=== PATIENT | male | born 1955 | race Caucasian/White ===

== ENCOUNTER 2017-10-19 21:49 | Inpatient (IN) | payer OTHER ==
[~2017-10-19] VITALS: Ht 188 cm; Wt 110.5 kg
[2017-10-19 21:58] LABS: BASOPHIL (%) 0.6 % (0-1); BASOPHIL COUNT 0.1 K/uL (0-0.1); EOSINOPHIL (%) 3.1 % (0-5); EOSINOPHIL COUNT 0.3 K/uL (0-0.3); HEMATOCRIT 37.2 % (38.0-50.0); HEMOGLOBIN 12.7 G/DL (12.5-16.6); IMMATURE GRANULOCYTE (%) 0.5 % (0.0-0.7); LYMPHOCYTE (%) 10.1 % (15-42); MCH 29.3 PG (29.0-34.0); MCHC 34.1 G/DL (30.0-36.0); MCV 85.9 FL (86-99); MONOCYTE (%) 4.8 % (3-12); MONOCYTE COUNT 0.5 K/uL (0-0.8); NEUTROPHIL (%) 80.9 % (45-76); NEUTROPHIL COUNT 7.9 K/uL (1.8-6.4); PLATELET COUNT 239 K/uL (156-360); RBC DIS.WIDTH-CV 13.6 % (11.8-14.6); RBC DIS.WIDTH-SD 42.3 % (39-53); RED BLOOD COUNT 4.33 M/uL (4.00-5.50); WHITE BLOOD COUNT 9.7 K/uL (4.1-10.2)
[2017-10-19 22:31] LABS: AMYLASE 24 IU/L (1-118); CHLORIDE 107 MEQ/L (99-109); CREATININE 1.3 MG/DL (0.6-1.3); GFR ESTIMATE (CALCULATED) > 59 mL/min/ (58.99-99999); GLUCOSE 202 mg/dL (70-99); LIPASE 15 U/L (1.0-51.0); POTASSIUM 4.4 MEQ/L (3.7-5.4); SERUM ETHYL ALCOHOL < 10 mg/dL; SODIUM 138 MEQ/L (136-147); UREA NITROGEN (BUN) 23 mg/dL (9-23)
[2017-10-20] VITALS (7 sets, daily range): BP systolic 143–182; BP diastolic 69–88
[2017-10-20] MEDS ORDERED: GLUCOPHAGE1000 MG PO (00:01)
[2017-10-20] MEDS ORDERED: ALLOPURINOL300 MG PO (00:01)
[2017-10-20] MEDS ORDERED: ACCUPRIL40 MG PO (00:01)
[2017-10-20] MEDS ORDERED: BASAGLAR K100 UNIT/1 SC (00:01)
[2017-10-20] MEDS ORDERED: BLOOD PRESSURE PO (00:01)
[2017-10-20 00:36] LABS: APPEARANCE CLEAR ((CLEAR)); BILIRUBIN NEGATIVE; BLOOD LARGE; COLOR YELLOW ((YELLOW)); GLUCOSE (STRIP) 150; KETONES NEGATIVE; LEUKOCYTES NEGATIVE; NITRITE NEGATIVE; PROTEIN (STRIP) >=500; SPECIFIC GRAVITY 1.032 (1.000-1.030); UROBILINOGEN 0.2 MG/DL (0.2-1.0)
[2017-10-20 00:40] LABS: BACTERIA NONE SEEN /HPF; EPITHELIAL CELLS NONE SEEN /HPF; MUCUS TRACE /LPF; UCUL ADDED? NO; WHITE BLOOD CELLS 0-5 /HPF (0-5)
[2017-10-20 00:44] LABS: AMPHETAMINE NEGATIVE (500 ng/mL); BARBITURATES NEGATIVE (200 ng/mL); BENZODIAZEPINES NEGATIVE (150 ng/mL); BUPRENORPHINE NEGATIVE (10 ng/mL); COCAINE NEGATIVE (150 ng/mL); METHADONE NEGATIVE (200 ng/mL); METHAMPHETAMINE NEGATIVE (500 ng/mL); OPIATES (MORPHINE) NEGATIVE (100 ng/mL); OXYCODONE NEGATIVE (100 ng/mL); PHENCYCLIDINE NEGATIVE (25 ng/mL); PROPOXYPHENE NEGATIVE (300 ng/mL); THC CANNABINOIDS NEGATIVE (50 ng/mL); TRICYCLIC ANTIDEPRESSANTS NEGATIVE (300 ng/mL)
[2017-10-20 05:27] LABS: BASOPHIL (%) 0.2 % (0-1); EOSINOPHIL (%) 0.2 % (0-5); HEMATOCRIT 33.3 % (38.0-50.0); HEMOGLOBIN 10.9 G/DL (12.5-16.6); IMMATURE GRANULOCYTE (%) 0.3 % (0.0-0.7); LYMPHOCYTE (%) 7.5 % (15-42); LYMPHOCYTE COUNT 0.7 K/uL (1.0-2.8); MCH 28.6 PG (29.0-34.0); MCHC 32.7 G/DL (30.0-36.0); MCV 87.4 FL (86-99); MONOCYTE (%) 5.5 % (3-12); MONOCYTE COUNT 0.5 K/uL (0-0.8); NEUTROPHIL (%) 86.3 % (45-76); PLATELET COUNT 212 K/uL (156-360); RBC DIS.WIDTH-CV 13.6 % (11.8-14.6); RBC DIS.WIDTH-SD 43.7 % (39-53); RED BLOOD COUNT 3.81 M/uL (4.00-5.50); WHITE BLOOD COUNT 9.3 K/uL (4.1-10.2)
[2017-10-20 05:58] LABS: ALBUMIN 3.7 G/DL (3.2-4.8); ALKALINE PHOSPHATASE 65 IU/L (3-129); ALT (GPT) 16 IU/L (3-49); AST (GOT) 24 IU/L (2-34); CHLORIDE 109 MEQ/L (99-109); CREATININE 1.1 MG/DL (0.6-1.3); GFR ESTIMATE (CALCULATED) > 59 mL/min/ (58.99-99999); GLUCOSE 184 mg/dL (70-99); POTASSIUM 4.6 MEQ/L (3.7-5.4); SODIUM 139 MEQ/L (136-147); TOTAL BILIRUBIN 0.4 MG/DL (0.0-1.0); TOTAL PROTEIN 5.6 G/DL (6.4-8.3); UREA NITROGEN (BUN) 20 mg/dL (9-23)
[2017-10-20] MEDS ORDERED: NORVASC5 MG PO (13:39)
[2017-10-20] MEDS ORDERED: GLUCOTROL5 MG PO (13:39)
[2017-10-21 05:19] LABS: HEMATOCRIT 33.7 % (38.0-50.0); HEMOGLOBIN 11.3 G/DL (12.5-16.6); MCH 29.6 PG (29.0-34.0); MCHC 33.5 G/DL (30.0-36.0); MCV 88.2 FL (86-99); PLATELET COUNT 199 K/uL (156-360); RBC DIS.WIDTH-CV 13.7 % (11.8-14.6); RBC DIS.WIDTH-SD 44.3 % (39-53); RED BLOOD COUNT 3.82 M/uL (4.00-5.50); WHITE BLOOD COUNT 8.3 K/uL (4.1-10.2)
[2017-10-21 06:05] LABS: CHLORIDE 104 MEQ/L (99-109); CREATININE 1.2 MG/DL (0.6-1.3); GFR ESTIMATE (CALCULATED) > 59 mL/min/ (58.99-99999); GLUCOSE 181 mg/dL (70-99); POTASSIUM 4.8 MEQ/L (3.7-5.4); SODIUM 136 MEQ/L (136-147); UREA NITROGEN (BUN) 19 mg/dL (9-23)
[2017-10-21 07:08] VITALS: BP 168/78
[2017-10-21 11:11] VITALS: BP 158/76
[2017-10-21 12:52] VITALS: BP 172/82
[2017-10-21 15:44] VITALS: BP 160/85
[2017-10-21 19:30] VITALS: BP 160/78
[2017-10-21 23:17] VITALS: BP 158/82
[2017-10-22 03:39] VITALS: BP 142/84
[2017-10-22 06:56] LABS: HEMATOCRIT 33.6 % (38.0-50.0); HEMOGLOBIN 10.8 G/DL (12.5-16.6); MCV 88.4 FL (86-99)
[2017-10-22 07:58] VITALS: BP 160/74
[2017-10-22 12:00] VITALS: BP 150/78
[2017-10-22 15:50] VITALS: BP 151/89
[2017-10-22 19:29] VITALS: BP 164/64
[2017-10-22 23:32] VITALS: BP 166/60
[2017-10-23 06:56] LABS: CHLORIDE 99 MEQ/L (99-109); CREATININE 1.2 MG/DL (0.6-1.3); GFR ESTIMATE (CALCULATED) > 59 mL/min/ (58.99-99999); GLUCOSE 188 mg/dL (70-99); POTASSIUM 4.5 MEQ/L (3.7-5.4); SODIUM 136 MEQ/L (136-147); UREA NITROGEN (BUN) 23 mg/dL (9-23)
[2017-10-23] MEDS ORDERED: COLACE100 MG PO (10:38)
[2017-10-23] MEDS ORDERED: DILAUDID4 MG PO (10:38)
[2017-10-23] MEDS ORDERED: ULTRAM50 MG PO (10:38)
[2017-10-23] MEDS ORDERED: ZOFRAN ODT4 MG PO (10:38)
[2017-10-23] MEDS ORDERED: LIDODERM 5% P1 PATCH TD (10:38)
[2017-10-23 12:02] VITALS: BP 119/60
== END 2017-10-23 13:50 | disposition home or self-care (01) | DRG 982 ==
LOC: TRA 21:49 → 3EAST 23:45 → EDOF 23:45 → ENRESERV 23:49 → 4EAST 10-20 01:51 → ENRESERV 10-21 09:56 → CANRESERV 10-21 09:56 → ENRESERV 10-21 09:58 → 3EAST 10-21 12:38
PROVIDERS: Emergency Medicine; Hospitalist; Physician Assistant; Surgery
PROC: 2W3FX1Z Immobilization of Left Hand using Splint (ICD-10-PCS; principal; 2017-10-19)
PROC: 0YQ9XZZ Repair Right Lower Extremity, External Approach (ICD-10-PCS; principal; 2017-10-19)
DX: S22.49XA Multiple fractures of ribs, unspecified side, initial encounter for closed fracture (principal); S12.600A Unspecified displaced fracture of seventh cervical vertebra, initial encounter for closed fracture; S32.029A Unspecified fracture of second lumbar vertebra, initial encounter for closed fracture; S22.41XA Multiple fractures of ribs, right side, initial encounter for closed fracture; S22.019A Unspecified fracture of first thoracic vertebra, initial encounter for closed fracture; S32.019A Unspecified fracture of first lumbar vertebra, initial encounter for closed fracture; E11.65 Type 2 diabetes mellitus with hyperglycemia; Z96.651 Presence of right artificial knee joint; S81.011A Laceration without foreign body, right knee, initial encounter; S61.412A Laceration without foreign body of left hand, initial encounter; S62.307A Unspecified fracture of fifth metacarpal bone, left hand, initial encounter for closed fracture; I49.3 Ventricular premature depolarization; E66.9 Obesity, unspecified; I10 Essential (primary) hypertension; K63.89 Other specified diseases of intestine; S81.811A Laceration without foreign body, right lower leg, initial encounter; R00.0 Tachycardia, unspecified; N20.0 Calculus of kidney; R31.9 Hematuria, unspecified; V49.88XA Car occupant (driver) (passenger) injured in other specified transport accidents, initial encounter; Z88.0 Allergy status to penicillin; Y93.89 Activity, other specified; Y99.9 Unspecified external cause status; Y92.39 Other specified sports and athletic area as the place of occurrence of the external cause; D62 Acute posthemorrhagic anemia; Z68.31 Body mass index [BMI] 31.0-31.9, adult; Z79.4 Long term (current) use of insulin; M19.90 Unspecified osteoarthritis, unspecified site; K57.30 Diverticulosis of large intestine without perforation or abscess without bleeding
CPT/HCPCS: 70450; 71045; 71260; 72040; 72125; 72129; 72132; 73130; 73560; 73590; 74177; 80048; 80053; 81003; 82150; 82948; 83690; 85014; 85018; 85025; 85027; 86850; 86900; 86901; 93005; 97530 GP; 99281; 99285; G0480; J0360; J1170; J1815; J1956; J2405; J3010; J3480; J7120